=== PATIENT | male | born 1985 | race Caucasian/White ===

== ENCOUNTER 2018-10-18 14:12 | Emergency (ER) | payer MEDICAID ==
[~2018-10-18] VITALS: Ht 167.6 cm; Wt 65.2 kg
[2018-10-18 14:14] VITALS: BP 151/82; PULSE 70; RESP 18; Ht 167.6 cm; Wt 65.2 kg
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
[2018-10-18] MEDS ORDERED: HYDROCODONE/APAP (5/325) TAB PO ONE (15:30)
[2018-10-18] MEDS ORDERED: HYDR-4011 PO (16:49)
== END 2018-10-18 17:06 | disposition home or self-care (01) ==
LOC: FTE 14:12
DX: S09.90XA Unspecified injury of head, initial encounter (principal); G44.319 Acute post-traumatic headache, not intractable; W22.8XXA Striking against or struck by other objects, initial encounter; Y92.9 Unspecified place or not applicable
CPT/HCPCS: 70450; Z7502; Z7610